=== PATIENT | male | born 2000 | race Caucasian/White ===

== ENCOUNTER 2020-02-17 02:38 | Emergency (ER) | payer MEDICAID ==
[~2020-02-17] VITALS: Ht 172.7 cm; Wt 86.0 kg
[2020-02-17] MEDS ORDERED: ACETAMINOPHEN 325MG TABLET PO ONE (03:30)
[2020-02-17 04:45] VITALS: BP 118/79
== END 2020-02-17 06:37 | disposition home or self-care (01) ==
LOC: ER 02:38
DX: M25.512 Pain in left shoulder (principal)
CPT/HCPCS: 73030; 99283